=== PATIENT | male | born 1985 | race Caucasian/White ===

== ENCOUNTER 2018-08-31 17:08 | Emergency (ER) | payer BC ==
[~2018-08-31] VITALS: Ht 182.9 cm; Wt 103.1 kg
[2018-08-31 17:11] VITALS: BP 158/97
--- NOTE | 2018-08-31 18:26 | NUR ---
TO ROOM FROM LOBBY. NAD.
--- NOTE | 2018-08-31 18:29 | NUR ---
PT TO ROOM FROM LOBBY
--- NOTE | 2018-08-31 18:38 | NUR ---
EDMD BEDSIDE. PT C/O HEMORRHOIDS TO EDMD AT THIS TIME. BEDSIDE. PT ALSO C/O LEFT EAR PAIN SINCE MONDAY. INCREASE AMT OF PAIN IN EAR. NO C/O N/V/D, TRAUMA, SYNCOPE, CP, SOB.
--- NOTE | 2018-08-31 18:51 | NUR ---
REPORT RECEIVED FROM LORENA GARCIA.
--- NOTE | 2018-08-31 19:12 | NUR ---
pt given dc instructions and scripts. pt educated regarding dc medications. pt's aox4. resps even and unlabored. pt amb to dc with steady gait. no acute distress at dc.
== END 2018-08-31 19:14 | disposition home or self-care (01) ==
LOC: ED 19:08
DX: H66.002 Acute suppurative otitis media without spontaneous rupture of ear drum, left ear (principal); K64.4 Residual hemorrhoidal skin tags
CPT/HCPCS: 99283